=== PATIENT | female | born 1955 | race Caucasian/White ===

== ENCOUNTER → 2016-06-20 | Outpatient (CLI) | payer BC ==
[2016-06-20 14:06] LABS: ABSOLUTE BASOPHILS # (AUTO) 0.1 10^3/uL (0.0-0.2); ABSOLUTE LYMPHOCYTES (AUTO) 1.8 10^3/uL (0.5-4.7); ABSOLUTE MONOCYTES (AUTO) 0.5 10^3/uL (0.1-1.4); ABSOLUTE NEUT (AUTO) 6.4 10^3/uL (1.7-8.2); BASOPHILS % (AUTO) 0.7 % (0-2); EOSINOPHILS % (AUTO) 0.5 % (0-6); HEMATOCRIT 44.9 % (36.0-47.0); HEMOGLOBIN 15.7 g/dL (12.0-15.5); HGB HCT DIFFERENCE 2.2; LYMPHOCYTES % (AUTO) 20.4 % (13-45); MEAN CORPUSCULAR VOLUME 89 fl (80-97); MONOCYTES % (AUTO) 5.5 % (3-13); RED BLOOD COUNT 5.07 10^6/uL (3.72-5.28); RED CELL DISTRIBUTION WIDTH 13.3 % (11.5-14.0); SEGMENTED NEUTROPHILS % (AUTO) 72.9 % (42-78); WHITE BLOOD COUNT 8.8 10^3/uL (4.0-10.5)
[2016-06-20 14:29] LABS: ALANINE AMINOTRANSFERASE 32 U/L (9-52); ALBUMIN 4.6 g/dL (3.5-5.0); ALKALINE PHOSPHATASE 100 U/L (38-126); ANION GAP 14 (5-19); ASPARTATE AMINO TRANSFERASE 18 U/L (14-36); BILIRUBIN,TOTAL 0.7 mg/dL (0.2-1.3); BLOOD UREA NITROGEN 6 mg/dL (7-20); CALCIUM 10.2 mg/dL (8.4-10.2); CARBON DIOXIDE 27 mmol/L (22-30); CHLORIDE 100 mmol/L (98-107); CREATININE RESULT 0.71 mg/dL (0.52-1.25); GLUCOSE 124 mg/dL (75-110); POTASSIUM 4.6 mmol/L (3.6-5.0); SODIUM 140.8 mmol/L (137-145); TOTAL PROTEIN 7.8 g/dL (6.3-8.2)
[2016-06-20 14:56] LABS: CARCINOEMBRYONIC ANTIGEN 2.1 ng/mL (<3.0)
[2016-06-23 12:16] LABS: ALDOSTERONE 4.1 ng/dL (0.0-30.0)
== END ==
LOC: OD 12:09
PROVIDERS: ATTEND Surgery
DX: C18.9 Malignant neoplasm of colon, unspecified (principal)
CPT/HCPCS: 36415; 80053; 82088; 82378; 82533; 83835; 84244; 85025

== ENCOUNTER → 2016-06-22 | Outpatient (CLI) | payer BC | LOC: RAD 09:39 | PROVIDERS: ATTEND Surgery | DX: E27.9 Disorder of adrenal gland, unspecified (principal); C18.9 Malignant neoplasm of colon, unspecified | CPT/HCPCS: 74181 ==

== ENCOUNTER → 2016-06-25 | Outpatient (CLI) | payer BC | LOC: OD 07:58 | PROVIDERS: ATTEND Surgery | DX: C18.9 Malignant neoplasm of colon, unspecified (principal) | CPT/HCPCS: 36415; 82533 ==

== ENCOUNTER 2016-07-17 08:47 | Inpatient (IN) | payer BC ==
[2016-07-10 11:05] LABS: ANION GAP 9 (5-19); BLOOD UREA NITROGEN 11 mg/dL (7-20); CALCIUM 10.2 mg/dL (8.4-10.2); CARBON DIOXIDE 31 mmol/L (22-30); CHLORIDE 102 mmol/L (98-107); CREATININE RESULT 0.79 mg/dL (0.52-1.25); GLUCOSE 92 mg/dL (75-110); POTASSIUM 4.5 mmol/L (3.6-5.0)
[2016-07-10 11:33] LABS: CARCINOEMBRYONIC ANTIGEN 2.4 ng/mL (<3.0)
[~2016-07-17 08:47] MED LIST: BUPIVACAINE HCL 0.25 % INJ/PF (2.5 MG/1 ML) 30 ML VIAL ONE; ERTAPENEM SODIUM 1 GM in NORMAL SALINE 50 ML IV PRN; GLUCAGON,HUMAN RECOMB 1 MG INJ ONE; GLYCOPYRROLATE INJ 0.4 MG/2 ML VIAL ONE; LACTATED RINGERS 1000 ML IV PRN; LIDOCAINE 0.5% INJ-PF (5 MG/ML) 50 ML SDV SUBCUT PRN; LIDOCAINE 2% INJ-PF (20 MG/ML) 10 ML AMPUL ONE; METOCLOPRAMIDE HCL INJ/PF 10 MG/2 ML SDV ONE; NEOSTIGMINE METHYLSULFATE 10 MG/10 ML VIAL ONE; ONDANSETRON HCL INJ/PF 4 MG/2 ML SDV ONE; PHENYLEPHRINE HCL INJ/PF 10 MG/1 ML SDV ONE; ROCURONIUM BROMIDE INJ 50 MG/5 ML VIAL IV ONE; SUCCINYLCHOLINE CHLORIDE INJ 200 MG/10 ML VIAL ONE
[2016-07-17] MEDS ORDERED: FENTANYL CITRATE INJ/PF 250 MCG/5 ML AMPULE ONE (12:09)
[2016-07-17] MEDS ORDERED: PROPOFOL INJ 200 MG/20 ML VIAL IV ONE (12:10)
[2016-07-17] MEDS ORDERED: MIDAZOLAM 2 MG/2 ML INJ ONE (12:10)
[2016-07-17] MEDS ORDERED: ACETAMINOPHEN 100 ML IV ONE (12:11)
[2016-07-17] MEDS ORDERED: MORPHINE SULFATE 10 MG/ML INJ ONE (12:11)
[2016-07-17] MEDS ORDERED: FENTANYL CITRATE INJ/PF 100 MCG/2 ML AMPUL IV PRN ×3 (13:48)
[2016-07-17] MEDS ORDERED: MEPERIDINE HCL/PF INJ 25 MG/1 ML DISP.SYRIN IV PRN (13:48)
[2016-07-17] MEDS ORDERED: PROMETHAZINE HCL INJ 25 MG/1 ML VIAL IV PRN ×2 (13:48)
[2016-07-17] MEDS ORDERED: DIPHENHYDRAMINE HCL 50 MG/ML VIAL IV PRN (13:48)
[2016-07-17] MEDS ORDERED: OXYCODONE-ACETAMINOPHEN 5-325 MG TABLET PO PRN ×2 (13:48)
[2016-07-17] MEDS ORDERED: MORPHINE SULFATE 10 MG/ML INJ IV PRN (13:48)
[2016-07-17] MEDS ORDERED: BUPIVACAINE HCL 0.25% /EPINEPHRINE INJ/PF 30 ML SDV ONE (14:49)
[2016-07-17] MEDS ORDERED: DEXTROSE 5%-1/2 NORMAL SALINE 1,000 ML with POTASSIUM CHLORIDE 20 MEQ IV PRN ×2 (15:42)
[2016-07-17] MEDS ORDERED: ONDANSETRON HCL INJ/PF 4 MG/2 ML SDV IV PRN (15:42)
--- NOTE | 2016-07-17 15:42 | Operative Report ---
Operative Report DATE OF SURGERY: 07/17/16 PREOPERATIVE DIAGNOSIS: Sigmoid colon cancer, internal hemorrhoids POSTOPERATIVE DIAGNOSIS: Sigmoid colon cancer, right posterior prolapsing internal hemorrhoids. Right anterior perianal skin tag. OPERATION: Sigmoidectomy with colorectal anastomosis and mobilization of the splenic flexure. Excision of right anterior perianal skin tags. Right posterior internal hemorrhoidectomy. SURGEON: BRANDIE VIZCAINO ANESTHESIA: GA TISSUE REMOVED OR ALTERED: Sigmoid colon and upper rectum. Perianal skin tags. Right posterior hemorrhoidal complex. COMPLICATIONS: None ESTIMATED BLOOD LOSS: 50 mL INTRAOPERATIVE FINDINGS: Large distal sigmoid colon mass. No evidence of metastatic disease on exploratory laparotomy. Prominent right anterior perianal skin tags. Prolapsing right posterior internal hemorrhoids. PROCEDURE: Informed consent was obtained. Patient was brought to the operating room and placed on the operating table in the supine position. After satisfactory induction of general anesthesia patient was placed in a low lithotomy position and her perineum and her abdomen was prepped and draped in usual sterile fashion. A lower midline incision was made dissection carried out through the fascia and the peritoneal cavity entered without difficulty. Wound protractor was used during the case. Exploratory laparotomy was performed first. The liver felt smooth with no nodules. The abdominal wall felt smooth with no nodules. Both of the kidneys felt smooth with the no evident masses. Anterior surface of the stomach and first and second portion the duodenum felt smooth. The small bowel appeared normal. The right colon transverse colon and descending colon appeared normal. A palpable mass was noted at the distal sigmoid colon. Pelvic palpation revealed no abnormal nodules. No evident lymphadenopathy. The sigmoid colon and the left colon was completely mobilized. The left ureter was identified and protected during the dissection. The CARINA was taken near the origin by clamping dividing and tying. The the sigmoid colon was divided at its junction to the descending colon with a PARKER stapling device. The intervening mesentery between the base of the CARINA and the sigmoid colon division was divided using a LigaSure device. Pelvic dissection was then carried down to the level of the middle rectum. Posterior dissection was performed in the avascular plane taking care to avoid injury to the underlying pelvic nerves. The middle rectum was divided with a contour stapling device. The meso rectum was divided with the LigaSure. The sigmoid colon along with the its entire mesentery was submitted to pathology. Gross examination revealed the excellent margins. The left colon was fully mobilized as was the splenic flexure. The left colon and reached down to the rectal stump easily at this point. The colon the however was small in diameter and it was large enough to only allow a 25 EEA stapling device. Using a pursestring device the head of the 25 EEA stapling device was then attached to the descending colon end. The anus was sequentially dilated and the EEA stapling device was then inserted via the anus into the rectal stump and a end to end anastomosis was created between the descending colon and the rectal stump. Both of the doughnuts were intact. The anastomosis was tested by insufflating air via a proctoscope. The anastomosis was airtight. Of note prior to the anastomosis the the vascularity of the descending colon end was tested with a Doppler device demonstrating triphasic flow. Hemostasis appeared excellent. Sponge needle and instrument counts were all correct. The omentum was draped over the bowel and the fascia was closed with running PDS suture. Skin was closed with bettina. Marcaine was injected at the the incision sites. Dressings were applied. Anal portion of the case was then performed. Marcaine with epinephrine was injected in the perianal region. Butler De La Rosa retractor was placed. There was a prominent the perianal skin tag at the right anterior upper position but the no significant the hemorrhoidal complex associated with the skin tag anteriorly. This prominent perianal skin tag was excised and the the defect was closed with running chromic suture. At the right posterior hemorrhoidal complex there was the evidence of the internal hemorrhoidal prolapse. The right posterior internal hemorrhoidal complex was excised along with the portion of the anoderm. Dissection was performed sharply dissecting the hemorrhoidal complex off of the internal sphincter as it reached the cephalad portion of the dissection I used a LigaSure. The defect was closed with a running chromic suture. Hemostasis appeared excellent. Patient tolerated procedure well with no apparent complications and was taken to the recovery area in stable condition.
[2016-07-17] MEDS ORDERED: ENOXAPARIN SODIUM INJ 30 MG/0.3 ML DISP.SYRIN SUBCUT ONE ×2 (16:00→22:00)
[2016-07-17] MEDS: KETOROLAC TROMETHAMINE INJ/PF 30 MG/1 ML SDV IV PRN (18:26)
[2016-07-17] MEDS: MORPHINE SULFATE 10 MG/ML INJ IV PRN (21:37)
[2016-07-17] MEDS: POTASSI CL 20 MEQ/D5-1/2NS 1L 1000 ML IV PRN (22:36)
[2016-07-18] MEDS: KETOROLAC TROMETHAMINE INJ/PF 30 MG/1 ML SDV IV PRN (01:41)
--- NOTE | 2016-07-18 05:06 | Progress Note ---
Provider Note Provider Note: S: called for bleeding on dressing, trace of blood in NG tube and 'asymmetrical distention.' Patient has been off ASA for a week, but got toradol and lovenox earlier tonight. O: AF, varying hypertension, normal pulse, normal O2 sat. Unlabored respirations. Normal mood, affect, mentation. Abd soft appropriately tender. Blood and hematoma upper half incision. Dressing removed, some blood expressed between two bettina with pressre. No evidence of any hernia or dehisence. Pressure held, bleeding stopped, wound redressed. Trace of probably sanguinous-tinged fluid in NG. P: asked RN to continue hold pressure for additional 5 min. Stopped toradol and lovenox. Add protonix, first dose now.
[2016-07-18 05:50] LABS: HEMATOCRIT 37.9 % (36.0-47.0); HEMOGLOBIN 12.8 g/dL (12.0-15.5); HGB HCT DIFFERENCE 0.5; MEAN CORPUSCULAR HEMOGLOBIN 30.1 pg (27.0-33.4); MEAN CORPUSCULAR HGB CONC 33.9 g/dL (32.0-36.0); MEAN CORPUSCULAR VOLUME 89 fl (80-97); RED BLOOD COUNT 4.26 10^6/uL (3.72-5.28); RED CELL DISTRIBUTION WIDTH 12.8 % (11.5-14.0); WHITE BLOOD COUNT 10.4 10^3/uL (4.0-10.5)
[2016-07-18 06:12] LABS: ANION GAP 9 (5-19); BLOOD UREA NITROGEN 9 mg/dL (7-20); CALCIUM 8.5 mg/dL (8.4-10.2); CARBON DIOXIDE 22 mmol/L (22-30); CHLORIDE 103 mmol/L (98-107); CREATININE RESULT 0.65 mg/dL (0.52-1.25); GLUCOSE 126 mg/dL (75-110); POTASSIUM 3.8 mmol/L (3.6-5.0); SODIUM 133.7 mmol/L (137-145)
[2016-07-18] MEDS: PANTOPRAZOLE SODIUM 40 MG VIAL IV SCH (06:39)
[2016-07-18] MEDS ORDERED: ENOXAPARIN SODIUM INJ 30 MG/0.3 ML DISP.SYRIN SUBCUT SCH ×2 (08:00)
[2016-07-18 08:28] LABS: HEMATOCRIT 42.6 % (36.0-47.0); HEMOGLOBIN 14.3 g/dL (12.0-15.5); HGB HCT DIFFERENCE 0.3; MEAN CORPUSCULAR HEMOGLOBIN 30.1 pg (27.0-33.4); MEAN CORPUSCULAR HGB CONC 33.5 g/dL (32.0-36.0); MEAN CORPUSCULAR VOLUME 90 fl (80-97); RED BLOOD COUNT 4.73 10^6/uL (3.72-5.28); RED CELL DISTRIBUTION WIDTH 13.3 % (11.5-14.0); WHITE BLOOD COUNT 7.3 10^3/uL (4.0-10.5)
[2016-07-18] MEDS: MORPHINE SULFATE 10 MG/ML INJ IV PRN ×3 (08:45→17:13)
[2016-07-18] MEDS: POTASSI CL 20 MEQ/D5-1/2NS 1L 1000 ML IV PRN ×2 (08:50→18:45)
--- NOTE | 2016-07-18 09:03 | PDOC PROGRESS REPORT ---
Subjective Progress Note for:: 07/18/16 Subjective:: Feel a little oozy after morphine today. Abdominal pain stable. Physical Exam Vital Signs: Temp Pulse Resp BP Pulse Ox 97.6 F 72 18 152/62 H 99 07/18/16 07:15 07/18/16 07:15 07/18/16 07:15 07/18/16 07:15 07/18/16 07:15 Intake & Output 07/17/16 07/18/16 07/19/16 06:59 06:59 06:59 Intake Total 4200 Output Total 660 100 Balance 3540 -100 Weight 46.72 kg General appearance: PRESENT: no acute distress Respiratory exam: PRESENT: clear to auscultation albert Cardiovascular exam: PRESENT: RRR GI/Abdominal exam: PRESENT: other - Soft, mildly distended, bruising centrally at her abdominal incision with no active bleeding. Tenderness over the region of bruising. Mild diffuse abdominal tenderness. Decreased bowel sounds. NG with dark fluid output. Results Laboratory Results: 07/18/16 05:34 07/18/16 05:34 07/10/16 07/18/16 07/18/16 09:46 05:34 05:34 WBC 7.3 10.4 RBC 4.73 4.26 Hgb 14.3 12.8 Hct 42.6 37.9 MCV 90 89 MCH 30.1 30.1 MCHC 33.5 33.9 RDW 13.3 12.8 Plt Count 414 309 Sodium 133.7 L Potassium 3.8 Chloride 103 Carbon Dioxide 22 Anion Gap 9 BUN 9 Creatinine 0.65 Est GFR ( Amer) > 60 Est GFR (Non-Af Amer) > 60 Glucose 126 H Calcium 8.5 Assessment & Plan - Diagnosis (1) Cancer of sigmoid Is this a current diagnosis for this admission?: YesPlan: Status post low anterior resection. Had postoperative bleed from her wound last night requiring compression and stoppage of her Toradol and Lovenox. Appears to have stopped but she does have bruising in this region. Will continue to hold her Toradol and Lovenox. Encourage ambulation today. Keep NG tube in light of the dark output.
[2016-07-18] MEDS: ATORVASTATIN CALCIUM 20 MG TABLET PO SCH (21:43)
[2016-07-18] MEDS: METOPROLOL SUCCINATE 50 MG TAB.SR.24H PO SCH (21:43)
[2016-07-19] MEDS: MORPHINE SULFATE 10 MG/ML INJ IV PRN (01:33)
[2016-07-19] MEDS: POTASSI CL 20 MEQ/D5-1/2NS 1L 1000 ML IV PRN ×2 (04:02→14:08)
[2016-07-19] MEDS: PANTOPRAZOLE SODIUM 40 MG VIAL IV SCH (06:08)
--- NOTE | 2016-07-19 07:34 | PDOC PROGRESS REPORT ---
Subjective Progress Note for:: 07/19/16 Subjective:: Feels better this morning but not getting much rest in the hospital. Physical Exam Vital Signs: Temp Pulse Resp BP Pulse Ox 98.2 F 80 16 196/78 H 98 07/19/16 03:42 07/19/16 03:42 07/19/16 03:42 07/19/16 03:42 07/19/16 03:42 Intake & Output 07/18/16 07/19/16 07/20/16 06:59 06:59 06:59 Intake Total 4200 565 Output Total 660 3750 Balance 3540 -3185 Weight 46.72 kg 46.9 kg General appearance: PRESENT: no acute distress Respiratory exam: PRESENT: clear to auscultation albert Cardiovascular exam: PRESENT: RRR GI/Abdominal exam: PRESENT: other - Soft, mildly distended, no bowel sounds heard. NG tube with bilious output. Bruising stable. No drainage. Extremities exam: PRESENT: other - No swelling. No tenderness Results Laboratory Results: 07/18/16 05:34 07/18/16 05:34 07/10/16 07/10/16 09:46 09:46 WBC 7.3 RBC 4.73 Hgb 14.3 Hct 42.6 MCV 90 MCH 30.1 MCHC 33.5 RDW 13.3 Plt Count 414 Seg Neutrophils % Lymphocytes % Monocytes % Eosinophils % Basophils % Absolute Neutrophils Absolute Lymphocytes Absolute Monocytes Absolute Eosinophils Absolute Basophils Assessment & Plan - Diagnosis (1) Cancer of sigmoid Is this a current diagnosis for this admission?: YesPlan: Status post low anterior resection. Had postoperative bleed from her wound two nights ago requiring compression and stoppage of her Toradol and Lovenox. Appears to have stopped but she does have bruising in this region. Will continue to hold her Toradol and Lovenox. Encourage ambulation. Keep NG tube in light of the dark output. STUART Rivera.
[2016-07-19] MEDS: METOPROLOL SUCCINATE 50 MG TAB.SR.24H PO SCH ×2 (10:52→22:46)
[2016-07-19] MEDS: LOSARTAN POTASSIUM 50 MG TABLET PO SCH (10:53)
[2016-07-19] MEDS: LEVOTHYROXINE SODIUM 0.05 MG TABLET PO SCH (10:53)
[2016-07-19] MEDS: ATORVASTATIN CALCIUM 20 MG TABLET PO SCH (22:53)
[2016-07-20] MEDS: POTASSI CL 20 MEQ/D5-1/2NS 1L 1,000 ML IV PRN ×2 (02:11→14:55)
[2016-07-20] MEDS: PANTOPRAZOLE SODIUM 40 MG VIAL IV SCH ×3 (05:32→14:50)
[2016-07-20 06:19] LABS: HEMATOCRIT 36.4 % (36.0-47.0); HEMOGLOBIN 12.3 g/dL (12.0-15.5); HGB HCT DIFFERENCE 0.5; MEAN CORPUSCULAR HEMOGLOBIN 29.8 pg (27.0-33.4); MEAN CORPUSCULAR HGB CONC 33.8 g/dL (32.0-36.0); MEAN CORPUSCULAR VOLUME 88 fl (80-97); RED BLOOD COUNT 4.12 10^6/uL (3.72-5.28); RED CELL DISTRIBUTION WIDTH 13.1 % (11.5-14.0); WHITE BLOOD COUNT 11.6 10^3/uL (4.0-10.5)
[2016-07-20 06:35] LABS: ANION GAP 11 (5-19); BLOOD UREA NITROGEN 8 mg/dL (7-20); CALCIUM 9.3 mg/dL (8.4-10.2); CARBON DIOXIDE 28 mmol/L (22-30); CHLORIDE 97 mmol/L (98-107); CREATININE RESULT 0.59 mg/dL (0.52-1.25); GLUCOSE 116 mg/dL (75-110); POTASSIUM 3.8 mmol/L (3.6-5.0)
--- NOTE | 2016-07-20 08:37 | PDOC PROGRESS REPORT ---
Subjective Progress Note for:: 07/20/16 Subjective:: Feels well. Passing flatus. Physical Exam Vital Signs: Temp Pulse Resp BP Pulse Ox 98.0 F 79 16 181/87 H 98 07/19/16 23:45 07/19/16 23:45 07/19/16 23:45 07/19/16 23:45 07/19/16 23:45 Intake & Output 07/19/16 07/20/16 07/21/16 06:59 06:59 06:59 Intake Total 565 1325 Output Total 3750 3090 700 Balance -3185 -1765 -700 Weight 46.9 kg 46.9 kg General appearance: PRESENT: no acute distress Respiratory exam: PRESENT: clear to auscultation albert Cardiovascular exam: PRESENT: RRR GI/Abdominal exam: PRESENT: other - Soft, nondistended, minimal tenderness. Positive bowel sounds. Bruising area centrally is stable. Extremities exam: PRESENT: other - No swelling no tenderness Results Laboratory Results: 07/20/16 06:07 07/20/16 06:07 07/20/16 07/20/16 06:07 06:07 WBC 11.6 H RBC 4.12 Hgb 12.3 Hct 36.4 MCV 88 MCH 29.8 MCHC 33.8 RDW 13.1 Plt Count 326 Sodium 136.0 L Potassium 3.8 Chloride 97 L Carbon Dioxide 28 Anion Gap 11 BUN 8 Creatinine 0.59 Est GFR ( Amer) > 60 Est GFR (Non-Af Amer) > 60 Glucose 116 H Calcium 9.3 Assessment & Plan - Diagnosis (1) Cancer of sigmoid Is this a current diagnosis for this admission?: YesPlan: Doing well. Will DC NG tube. Allow patient to ambulate more. Hold off on diet for now.
[2016-07-20] MEDS: METOPROLOL SUCCINATE 50 MG TAB.SR.24H PO SCH ×2 (09:15→21:40)
[2016-07-20] MEDS: LEVOTHYROXINE SODIUM 0.05 MG TABLET PO SCH (09:15)
[2016-07-20] MEDS: LOSARTAN POTASSIUM 50 MG TABLET PO SCH (09:15)
[2016-07-20] MEDS: ATORVASTATIN CALCIUM 20 MG TABLET PO SCH (21:40)
--- NOTE | 2016-07-21 08:27 | PDOC PROGRESS REPORT ---
Subjective Progress Note for:: 07/21/16 Subjective:: Feels well. Tolerating clears well passing more gas. No nausea no abdominal bloating. Physical Exam Vital Signs: Temp Pulse Resp BP Pulse Ox 98.0 F 65 16 150/71 H 98 07/21/16 00:00 07/21/16 00:00 07/21/16 00:00 07/21/16 00:00 07/21/16 00:00 Intake & Output 07/20/16 07/21/16 07/22/16 06:59 06:59 06:59 Intake Total 1325 3397 Output Total 3090 2610 Balance -1765 787 Weight 46.9 kg 46.9 kg General appearance: PRESENT: no acute distress Respiratory exam: PRESENT: clear to auscultation albert Cardiovascular exam: PRESENT: RRR GI/Abdominal exam: PRESENT: other - Soft, nondistended, nontender to palpation. Bruising centrally but the wound clean dry and intact. Extremities exam: PRESENT: other - No swelling Results Laboratory Results: 07/20/16 06:07 07/20/16 06:07 Assessment & Plan - Diagnosis (1) Cancer of sigmoid Is this a current diagnosis for this admission?: YesPlan: Doing well. Tolerating liquid diet well. Will discharge the patient home today. May advance the diet to solid diet at home. Stay active at home. follow -up with me in a couple weeks.
[2016-07-21] MEDS: LEVOTHYROXINE SODIUM 0.05 MG TABLET PO SCH (09:02)
[2016-07-21] MEDS: LOSARTAN POTASSIUM 50 MG TABLET PO SCH (09:03)
[2016-07-21] MEDS: METOPROLOL SUCCINATE 50 MG TAB.SR.24H PO SCH (09:03)
--- NOTE | 2016-07-21 09:03 | DISCHARGE SUMMARY E ---
Discharge Summary NAME: ALONZO CASON : 1955 AGE: 60Y ADMITTED: 07/17/2016 DISCHARGED: 07/21/2016 DISCHARGE DIAGNOSIS: Sigmoid colon cancer. SECONDARY DIAGNOSIS: Postoperative wound hematoma. PROCEDURE PERFORMED DURING HOSPITALIZATION: Low anterior resection with mobilization of the splenic flexure performed by Dr. Cresencio Vizcaino on 07/17/2016. HOSPITAL COURSE: The patient underwent the above mentioned procedure. She was placed on Lovenox postoperatively; however, she developed a complication of Lovenox with a wound hematoma, which stopped with the Lovenox stoppage and compression. Other than this complication, her postoperative course was unremarkable. She was tolerating a diet well at the time of discharge passing gas with a very soft, nondistended abdomen. She had bruising centrally at her abdominal wall, but no drainage. Patient required no pain medication by the time of discharge. Patient is now being discharged to home in good condition. She will follow up with me next week. She is encouraged to stay active at home, but avoid strenuous activity. She may return to work in a couple of weeks. She may resume all of her home medications. Additional medication is Colace 100 mg p.o. b.i.d. I have written her a prescription for Percocet if she needs it. She is to call me for any problems. DICTATING PHYSICIAN: CRESENCIO VIZCAINO M.D. [id number] PHY#: [id number] ID: [id number] JOB#: [id number] ACCT: [id number] cc:CRESENCIO VIZCAINO M.D. >
[2016-07-21 10:26] VITALS: BP 144/67
== END 2016-07-21 12:05 | disposition home or self-care (01) | DRG 330 ==
LOC: INOR 08:54 → UNDOADMIN 08:54 → INOR 08:58 → 4S 17:15
PROVIDERS: ADMIT Surgery; ATTEND Surgery
PROC: 06BY0ZC Excision of Hemorrhoidal Plexus, Open Approach (ICD-10-PCS; 2016-07-17)
PROC: 0DTN0ZZ Resection of Sigmoid Colon, Open Approach (ICD-10-PCS; principal; 2016-07-17 11:00)
DX: C18.7 Malignant neoplasm of sigmoid colon (principal); K91.870 Postprocedural hematoma of a digestive system organ or structure following a digestive system procedure; K64.3 Fourth degree hemorrhoids; I10 Essential (primary) hypertension; E03.9 Hypothyroidism, unspecified; E78.00 Pure hypercholesterolemia, unspecified; F17.210 Nicotine dependence, cigarettes, uncomplicated; T45.515A Adverse effect of anticoagulants, initial encounter; Y92.230 Patient room in hospital as the place of occurrence of the external cause; Z79.82 Long term (current) use of aspirin
CPT/HCPCS: 36415; 80048; 82378; 840; 85025; 85027; 86850; 86900; 86901; 88304; 88307; 88329; J0131; J0330; J1335; J1610; J1650; J1885; J2250; J2270; J2370; J2405; J2704; J2765; J3010; J3480; J3490; S0164

== ENCOUNTER → 2016-11-07 | Outpatient (CLI) | payer BC | LOC: OD 13:38 | PROVIDERS: ATTEND Surgery | DX: C18.9 Malignant neoplasm of colon, unspecified (principal) | CPT/HCPCS: 36415; 82378 ==

== ENCOUNTER → 2017-03-22 | Outpatient (CLI) | payer BC | LOC: OD 10:15 | PROVIDERS: ATTEND Surgery | DX: C18.9 Malignant neoplasm of colon, unspecified (principal) | CPT/HCPCS: 36415; 82378 ==

== ENCOUNTER → 2017-07-03 | Outpatient (CLI) | payer BC | LOC: OD 15:07 | PROVIDERS: ATTEND Surgery | DX: C18.9 Malignant neoplasm of colon, unspecified (principal) | CPT/HCPCS: 36415; 82378 ==

== ENCOUNTER 2017-09-05 07:11 | Day surgery (SDC) | payer BC ==
[2017-09-05] MEDS ORDERED: NALOXONE HCL INJ/PF 0.4 MG/1 ML SDV ONE (07:26)
[2017-09-05] MEDS ORDERED: GLYCOPYRROLATE INJ 0.4 MG/2 ML VIAL ONE (07:26)
[2017-09-05] MEDS ORDERED: ONDANSETRON HCL INJ/PF 4 MG/2 ML SDV ONE (07:26)
[2017-09-05] MEDS ORDERED: GLUCAGON,HUMAN RECOMB 1 MG INJ ONE (07:27)
[2017-09-05] MEDS ORDERED: FLUMAZENIL INJ 0.5 MG/5 ML VIAL ONE (07:27)
[2017-09-05] MEDS ORDERED: EPINEPHRINE INJ 1 MG/10 ML DISP.SYRIN ONE (07:27)
[2017-09-05] MEDS: MIDAZOLAM 2 MG/2 ML INJ ONE ×3 (08:21→08:51)
[2017-09-05] MEDS: FENTANYL CITRATE INJ/PF 100 MCG/2 ML AMPUL ONE ×2 (08:48→08:54)
--- NOTE | 2017-09-05 09:25 | Discharge Summary ---
Discharge Summary (SDC) - Discharge Final Diagnosis: History of sigmoid colon cancer status post sigmoid colectomy Date of Surgery: 09/05/17 Discharge Date: 09/05/17 Condition: Good Treatment or Instructions: [address] [address] POST ENDOSCOPY DISCHARGE INSTRUCTIONS 1. Diet: Start clear liquids that a regular diet as tolerated. 2. Resume all preoperative medications. All oral anticoagulants and aspirins can be resumed 24 hours after procedure. 3. If a polypectomy was performed some bleeding per rectum may occur. This should stop within 3 days. If not, please contact the office. 4. If you had a colonoscopy you may experience some bloating and delayed return of normal bowel function for several days, your regular bowel movement pattern should resume within a week. 5. Please contact [facility] at to make an appointment with Dr. Marquez for 1 to 3 weeks following procedure. 6. If you have any questions or concerns regarding your care,treatment plan or follow up, please contact our office. 7. Per clinical guidelines we recommend you undergo a repeat colonoscopy in 2 years. Referrals: BRANDIE VIZCAINO MD [Primary Care Provider] - Discharge Diet: As Tolerated Discharge Activity: Activity As Tolerated Home Care Assistance: None Needed Report the Following to Your Physician Immediately: Shortness of Breath, Increase in Pain, Fever over 101 Degrees
--- NOTE | 2017-09-05 09:29 | Operative Report ---
Operative Report DATE OF SURGERY: 09/05/17 PREOPERATIVE DIAGNOSIS: 1. Personal history colon cancer status post sigmoid colectomy for T3 N0 M0 tumor. 2. Need for surveillance colonoscopy POSTOPERATIVE DIAGNOSIS: Same. 1. Essentially normal surveillance colonoscopy. 2. Scattered diverticula OPERATION: Total colonoscopy to cecum with photodocumentation SURGEON: RIVKA MARQUEZ ANESTHESIA: Moderate Sedation TISSUE REMOVED OR ALTERED: None COMPLICATIONS: None ESTIMATED BLOOD LOSS: Scant INTRAOPERATIVE FINDINGS: See below PROCEDURE: Obtaining informed consent the patient was taken from the preoperative holding area to the main endoscopy suite where monitoring devices were attached to the patient. Plan and surgical timeout were conducted The patient was placed in the left lateral decubitus position with knees to chest. A perianal examination was performed. There was no visible or palpable anorectal pathology. Sphincter tone was felt to be normal. The flexible adult colonoscope was advanced through the anal rectal canal, all the way to the cecum. Visualization of the cecum was achieved and the ileocecal valve, the appendiceal orifice and transillumination of the anterior abdominal wall. This was an excellent study on the well-prepped bowel. The colonoscope was withdrawn slowly and methodically checked and the mucosa carefully. There was no evidence of tumor, stricture, bleeding or polyp. There were scattered rare diverticulosis ; scope was brought back through the left colon. There were multiple tattoos sites proximal and distal to the operative anastomosis. The anastomosis was widely patent; there were a few aberrations related to stable artifact; the scope was slowly withdrawn through the anal rectal canal. Scope was retroflexed in the anorectal canal. There was some scarring but no narrowing consistent with previous anal surgery consistent with hemorrhoidectomy; complete visualization of the rectum was achieved with photodocumentation. The scope was withdrawn to the patient's anus. The patient tolerated the procedure well and was taken to the recovery area in stable condition. This was an excellent study and a well-prepped bowel; surveillance guidelines would suggest a follow-up colonoscopy in 1-2 years. This will be discussed with the patient at her next appointment with Dr. Marquez
[2017-09-05 10:14] VITALS: BP 161/74
== END 2017-09-05 10:18 | disposition home or self-care (01) ==
LOC: END 07:11
PROVIDERS: ATTEND Surgery
DX: Z12.11 Encounter for screening for malignant neoplasm of colon (principal); K57.30 Diverticulosis of large intestine without perforation or abscess without bleeding; K64.3 Fourth degree hemorrhoids; E78.00 Pure hypercholesterolemia, unspecified; I10 Essential (primary) hypertension; F17.210 Nicotine dependence, cigarettes, uncomplicated; E03.9 Hypothyroidism, unspecified; Z85.038 Personal history of other malignant neoplasm of large intestine; Z79.899 Other long term (current) drug therapy; Z79.82 Long term (current) use of aspirin
CPT/HCPCS: 45378; J2250; J3010; J0171; J1610; J2310; J2405; J3490

== ENCOUNTER → 2018-01-08 | Outpatient (CLI) | payer BC ==
[2018-01-08 09:35] LABS: ABSOLUTE BASOPHILS # (AUTO) 0.1 10^3/uL (0.0-0.2); ABSOLUTE EOSINOPHILS # (AUTO) 0.1 10^3/uL (0.0-0.6); ABSOLUTE LYMPHOCYTES (AUTO) 1.8 10^3/uL (0.5-4.7); ABSOLUTE MONOCYTES (AUTO) 0.6 10^3/uL (0.1-1.4); ABSOLUTE NEUT (AUTO) 4.6 10^3/uL (1.7-8.2); BASOPHILS % (AUTO) 0.8 % (0-2); HEMATOCRIT 41.8 % (36.0-47.0); HEMOGLOBIN 14.8 g/dL (12.0-15.5); LYMPHOCYTES % (AUTO) 25.7 % (13-45); MEAN CORPUSCULAR HEMOGLOBIN 31.4 pg (27.0-33.4); MEAN CORPUSCULAR HGB CONC 35.3 g/dL (32.0-36.0); MEAN CORPUSCULAR VOLUME 89 fl (80-97); MONOCYTES % (AUTO) 7.7 % (3-13); PLATELET COUNT 331 10^3/uL (150-450); RED CELL DISTRIBUTION WIDTH 12.9 % (11.5-14.0); SEGMENTED NEUTROPHILS % (AUTO) 63.8 % (42-78); TOTAL CELLS COUNTED % (AUTO) 100 %; WHITE BLOOD COUNT 7.2 10^3/uL (4.0-10.5)
[2018-01-08 10:00] LABS: ALANINE AMINOTRANSFERASE 25 U/L (9-52); ALBUMIN 4.3 g/dL (3.5-5.0); ALKALINE PHOSPHATASE 86 U/L (38-126); ANION GAP 13 (5-19); ASPARTATE AMINO TRANSFERASE 20 U/L (14-36); BILIRUBIN,DIRECT 0.2 mg/dL (0.0-0.4); BILIRUBIN,TOTAL 0.7 mg/dL (0.2-1.3); BLOOD UREA NITROGEN 9 mg/dL (7-20); CALCIUM 9.7 mg/dL (8.4-10.2); CARBON DIOXIDE 27 mmol/L (22-30); CHLORIDE 102 mmol/L (98-107); CHOLESTEROL 151.88 mg/dL (0-200); GLUCOSE 95 mg/dL (75-110); POTASSIUM 4.2 mmol/L (3.6-5.0); SODIUM 141.5 mmol/L (137-145); TOTAL PROTEIN 7.2 g/dL (6.3-8.2); TRIGLYCERIDES 133 mg/dL (<150)
[2018-01-08 10:11] LABS: DIRECT LDL 76 mg/dL (<100)
== END ==
LOC: OD 08:41
PROVIDERS: ATTEND Internal Medicine
DX: E03.9 Hypothyroidism, unspecified (principal); E78.2 Mixed hyperlipidemia; I10 Essential (primary) hypertension; M19.039 Primary osteoarthritis, unspecified wrist
CPT/HCPCS: 36415; 80053; 80061; 83735; 84436; 84443; 85025